=== PATIENT | female | born 1970 | race Caucasian/White ===

== ENCOUNTER → 2020-08-29 | Outpatient (CLI) | payer OTHER ==
[~2020-08-29] MED LIST: B COMPLEX1 EACH PO; COLLAGEN HYDROLY1 GM PO; FISH OIL 1,0001 EAC9 PO; ONE-DAILY MULT1 EAC1 PO
== END ==
LOC: LAB 13:33
PROVIDERS: ATTEND Surgery
DX: Z01.812 Encounter for preprocedural laboratory examination (principal); Z20.822 Contact with and (suspected) exposure to COVID-19

== ENCOUNTER → 2020-09-03 | Day surgery (SDC) | payer OTHER ==
[~2020-09-03] VITALS: Ht 160 cm; Wt 69.9 kg
[~2020-09-03] MED LIST changes: +NORCO5 PO
--- NOTE | ~2020-09-03 | O ---
[facility] [place] [address] OPERATIVE REPORT Name: HUMAIRA STERN Room #: REG [facility]..#: [id number] Admission: 09/03/20 Attend Phys: Ivan Liang MD Discharge: Date of : 68 Report #: [id number] THIS REPORT FOR: cc: JAMES - Karla family physician/PCP JAMES - No family physician/PCP Ivan Liang MD ~ DATE OF SERVICE: 09/03/2020 PREOPERATIVE DIAGNOSIS: Biliary dyskinesia. POSTOPERATIVE DIAGNOSIS: Biliary dyskinesia. OPERATIVE PROCEDURE DONE: Laparoscopic cholecystectomy. OPERATING SURGEON: Ivan Liang MD INDICATIONS FOR THE PROCEDURE: The patient is a 50-year-old female who presented with features of recurrent episodes of right upper quadrant pain. Her HIDA scan that was done showed features of biliary dyskinesia. The patient was advised laparoscopic cholecystectomy. The patient showed understanding and agreed to proceed. DESCRIPTION OF PROCEDURE: After explaining to the patient in detail and informed consent was obtained, the patient was identified in the preoperative holding area. The patient was transferred to the operating room and was placed in supine position. Sequential compressive devices were placed for DVT prophylaxis. Preoperative antibiotics were given. After induction of anesthesia, the abdomen was prepped and draped in a sterile fashion. Through a right upper quadrant 1 cm incision and using Optiview technique, peritoneal cavity was entered and pneumoperitoneum was created. Thereafter, under direct vision, another 5 mm trocar was placed through a supraumbilical incision, another 5 mm trocar was placed in the epigastrium and one in the right lateral subcostal region. On the initial inspection, the gallbladder was identified and appeared normal. The gallbladder was retracted and the peritoneal reflection along the neck of the gallbladder was gently dissected off. Cystic duct was identified and isolated from the surrounding structures. Cystic artery was identified and isolated from the surrounding structures. Cystic duct was then double clipped proximally and single clipped applied distally and was then divided. Cystic artery also was then divided in a similar fashion. The gallbladder was gently dissected off the liver bed using hook electrocautery. Absolute hemostasis was achieved. Thorough saline irrigation was given. Gallbladder was retrieved using an EndoCatch through the lateral most incision. Incisions were then closed with 4-0 Monocryl. The lateral incision was closed with 0 Vicryl for the fascia. Skin was closed with 4-0 Monocryl for all the incisions. Dermabond was applied. The patient was stable at the end of the [address] [address] OPERATIVE REPORT Name: LEENAHUMAIRA [id number] Admission: 09/03/20 Attend Phys: Ivan Liang MD Discharge: Date of : 68 Report #: [id number] procedure. The patient was awoken from anesthesia and was transferred to the recovery room in stable condition. ESTIMATED BLOOD LOSS: Approximately 10 mL. CONDITION OF THE PATIENT: Stable. FLUIDS GIVEN: Per anesthesia notes. SPECIMEN SENT: Gallbladder. COMPLICATIONS: None. ANESTHESIA: General anesthesia. By: [id number] Ivan Liang MD /wolf
[2020-09-03 12:10] VITALS: BP 112/66
[2020-09-03 16:29] VITALS: BP 112/66
--- NOTE | 2020-09-09 14:07 | PATH ---
[facility] [place] [address] PATHOLOGY RPT PROCEDURE Name: ZEINA BOWMAN Room #: REG [facility] M..#: [id number] Admission: 09/03/20 Date of : 68 Discharge: Report #: [id number] Path Case #: [id number] [facility] Accession Number: [id number] . 01 Material submitted: . gallbladder - GALLBLADDER . 01 Clinical history: . BILIARY DYSKINESIA LAPAROSCOPIC CHOLECYSTECTOMY . 02 Diagnosis: Gallbladder, excision: - Chronic cholecystitis; negative for malignancy. - Cholesterolosis. (MLK:pit; 09/08/2020) OLT 09/08/2020 1814 Local . 02 Electronically signed: . Jing Hunter MD, Pathologist NPI- [id number] . 01 Gross description: . Received in formalin labeled "Zeina Bowman, gallbladder" is an intact cholecystectomy specimen measuring 5.6 x 3.0 x 1.7 cm. The serosa is walsh-green with a full thickness defect in the fundus measuring 0.5 cm. The specimen is opened to reveal dark green velvety mucosa without polyps or masses. The average wall thickness is 0.1 cm. Calculi are not identified in the gallbladder or container. Principal Developer sections of the fundus and body and the cystic duct margin are submitted in A1. ([facility]; 09/04/2020) [facility] 09/04/2020 [facility]3 Local . 02 Pathologist provided ICD-10: K81.1, K82.4 . 02 CPT . 840410 Specimen Comment: Report sent to Performed at: [address], [place], [place] [id number] MD Kannan Hutchinson MD Phone: [phone] Performed at: [address] [id number] MD Fiona Carter MD Phone: [phone]
== END | disposition home or self-care (01) ==
LOC: OR → EDBD → OR 11:47 → EDSTATUS 12:53 → OR 12:53
PROVIDERS: ATTEND Surgery
DX: K81.1 Chronic cholecystitis (principal); Z98.890 Other specified postprocedural states; Z79.899 Other long term (current) drug therapy; Z87.442 Personal history of urinary calculi; Z90.721 Acquired absence of ovaries, unilateral
CPT/HCPCS: 50010; 50101; 50411; 50555; 51489; 52265; 52266; 53310; 54022; 54118; 55245; 56462; 56525; 56526; 57257; 62110; 62900; 70005